=== PATIENT | male | born 1960 | race African-American/Black ===

== ENCOUNTER 2017-12-22 13:48 | Inpatient (IN) | payer MEDICAID ==
[~2017-12-22] VITALS: Ht 182.9 cm; Wt 103.9 kg
--- NOTE | ~2017-12-22 | EC ---
PATIENT:NAYANA NICE DATE OF SERVICE: 12/22/17 SEX: M MEDICAL RECORD: [id number] DATE OF : 58 LOCATION:D.M2 D.213 AGE OF PATIENT: 57 ADMISSION DATE: 12/22/17 REFERRING PHYSICIAN: INTERPRETING PHYSICIAN: TERRANCE ZAMUDIO MD ECHOCARDIOGRAM REPORT ECHO CHARGES 4 ECHO COMPLETE Date: 12/24/17 CLINICAL DIAGNOSIS: EDEMA ECHOCARDIOGRAPHIC MEASUREMENTS (adult normal given) AC root (d.<3.7cm) 3.3 cm LV Septum d (<1.2 cm> 2.4 cm Valve Excursion 1.4 cm LV Septum (systole) 2.4 cm Left Atria (s.<4.0cm> 5.2 cm LVPW d(<1.2cm) 1.5 cm RV (d.<2.3cm) 3.8 cm LVPW (sytole) 2.5 cm LV diastole(<5.6CM) 4.9 cm MV E-F(>70mm/sec) cm LV systole 3.2 cm LVOT Diameter 1.9 cm MV exc.(>10mm) cm Est.ejection fraction (50-75%) % DOPPLER: LVIT cm/sec A 38 cm/sec E 90 cm/sec LA cm/sec RVSP 20.2 mmHg LVOT 90 cm/sec AOP1/2T m/s Asc. Ao 172 cm/sec RVOT 78 cm/sec RA cm/sec PA 109 cm/sec AV Gradient Peak 11.9 mmHg AV Mean 5.7 mmHg AV Area 1.6 cm MV Gradient Peak 6.3 mmHg MV Mean 2.7 mmHg MV Area cm COMMENTS: Tools Developer: Imani FORTE Director Clinical Data: 3 Dr. Clark TAPE# PACS Pericardial Effusion N DATE OF SERVICE: 12/25/2017 Adequate 2D echo, color flow and spectral Doppler, and M-mode. LVH present. LV internal dimensions are normal. LV is globally hypokinetic with reduced EF, estimated EF 35%. Aortic valve sclerosis without stenosis by Doppler interrogation. Left atrium is dilated at 5.2 cm. Mitral valve shows no prolapse. Mild MR. Right sided chamber size is normal. Mild TR. TRANSINT:[id number] Voice Confirmation ID: [id number] DOCUMENT ID: [id number] ECHOCARDIOGRAM REPORT [id number] ARLETNAYANA COLON TERRANCE ZAMUDIO MD at 0843 CC: [id number] DICTATION DATE: 12/25/17 1053 FUR FINISHER SEAMSTRESS: 12/25/17 1159 DIS IN 12/25/17 [id number] [place] [address]
[2017-12-22 08:00] VITALS: BP 106/73; BP 153/85
[2017-12-22 14:35] LABS: BASOPHILS 0.2 % (0-2); EOSINOPHILS 4.8 % (0-7); HEMATOCRIT 23.5 % (42.0-54.0); IMMATURE GRANULOCYTES 0.2 % (0-5); MCH 26.2 pg (26.0-34.0); MCHC 31.9 g/dL (31.0-37.0); MCV 82.2 fL (80.0-100.0); MONOCYTES 7.2 % (2-11); NEUTROPHILS 68.6 % (40-80); PLATELET COUNT 177 10x3/uL (130-400); RBC 2.86 10x6/uL (4.20-6.10); WBC 5.3 10x3/uL (4.8-10.8)
[2017-12-22 14:44] LABS: HEMOGLOBIN 7.5 g/dL (13.5-17.5)
[2017-12-22 15:04] LABS: ALBUMIN 2.7 g/dL (3.4-5.0); ANION GAP 10.1 mmol/L (8-16); BILIRUBIN - TOTAL 0.44 mg/dL (0.2-1.3); CALCIUM 7.9 mg/dL (8.5-10.1); CARBON DIOXIDE 28.3 mmol/L (21.0-32.0); CREATININE - SERUM 1.5 mg/dL (0.6-1.3); POTASSIUM - SERUM 3.4 mmol/L (3.5-5.1); PROTEIN - SERUM 6.4 g/dL (6.4-8.2)
[2017-12-22 15:49] LABS: INR 1.29 (0.85-1.17); PROTIME 15.6 SECONDS (11.6-15.0)
[2017-12-22 15:51] LABS: D-DIMER-QUANTITATIVE 1.56 ug/mLFEU (0.20-0.54)
[2017-12-22 16:59] LABS: C-REACTIVE PROTEIN 0.2 mg/dL (0.0-0.9); CKMB 2.1 U/L (0.0-3.6); CREATINE KINASE 384 UL (21-232); PRO BNP 5830 pg/mL (0-125); TROPONIN-I < 0.017 ng/mL (0.000-0.060)
[2017-12-23] VITALS (7 sets, daily range): BP systolic 147–182; BP diastolic 66–91; BMI 28.5
[2017-12-23] MEDS ORDERED: HYDROCODONE-APA1 TAB PO (11:41)
[2017-12-23] MEDS ORDERED: CATAPRES0.1 MG PO (11:42)
[2017-12-23] MEDS ORDERED: GLUCOPHAGE500 MG PO (11:42)
[2017-12-23] MEDS ORDERED: COLACE100 MG PO (11:43)
[2017-12-23] MEDS ORDERED: MIRALAX527 GM PO (11:43)
[2017-12-23] MEDS ORDERED: NORVASC10 MG PO (11:44)
[2017-12-23] MEDS ORDERED: PRINIVIL20 MG PO (11:44)
[2017-12-23] MEDS ORDERED: COREG25 MG PO (11:45)
[2017-12-23] MEDS ORDERED: LOW DOSE ASPIRI81 M1 PO (11:46)
[2017-12-23] MEDS ORDERED: LASIX40 MG PO (11:46)
[2017-12-23] MEDS ORDERED: CARDURA4 MG PO (11:47)
[2017-12-23] MEDS ORDERED: GLUCOTROL 5 MG T5 MG PO (11:47)
[2017-12-23] MEDS ORDERED: LIPITOR80 MG PO (11:47)
[2017-12-23 15:08] LABS: BASOPHILS 0.3 % (0-2); EOSINOPHILS 4.7 % (0-7); IMMATURE GRANULOCYTES 0.2 % (0-5); LYMPHOCYTES 14.9 % (15-50); MCH 26.6 pg (26.0-34.0); MCHC 32.7 g/dL (31.0-37.0); MCV 81.4 fL (80.0-100.0); MEAN PLATELET VOLUME 9.9 fL (7.4-10.4); NEUTROPHILS 73.9 % (40-80); PLATELET COUNT 185 10x3/uL (130-400); RDW 14.8 % (11.5-14.5); WBC 6.5 10x3/uL (4.8-10.8)
[2017-12-23 15:09] LABS: HEMATOCRIT 28.4 % (42.0-54.0); HEMOGLOBIN 9.3 g/dL (13.5-17.5); RBC 3.49 10x6/uL (4.20-6.10)
[2017-12-23 15:25] LABS: ALBUMIN 2.9 g/dL (3.4-5.0); ANION GAP 12.8 mmol/L (8-16); BILIRUBIN - TOTAL 0.68 mg/dL (0.2-1.3); CALCIUM 8.5 mg/dL (8.5-10.1); CARBON DIOXIDE 27.7 mmol/L (21.0-32.0); CREATININE - SERUM 1.4 mg/dL (0.6-1.3); POTASSIUM - SERUM 3.5 mmol/L (3.5-5.1); PROTEIN - SERUM 7.2 g/dL (6.4-8.2)
[2017-12-24 04:56] VITALS: BP 179/92
[2017-12-24 09:23] VITALS: BP 168/83
[2017-12-24 11:57] LABS: BASOPHILS 0.3 % (0-2); EOSINOPHILS 3.2 % (0-7); HEMATOCRIT 29.9 % (42.0-54.0); HEMOGLOBIN 9.7 g/dL (13.5-17.5); IMMATURE GRANULOCYTES 0.3 % (0-5); LYMPHOCYTES 12.6 % (15-50); MCHC 32.4 g/dL (31.0-37.0); MCV 80.2 fL (80.0-100.0); MEAN PLATELET VOLUME 10.3 fL (7.4-10.4); MONOCYTES 7.2 % (2-11); NEUTROPHILS 76.4 % (40-80); PLATELET COUNT 185 10x3/uL (130-400); RBC 3.73 10x6/uL (4.20-6.10); RDW 14.7 % (11.5-14.5); WBC 6.5 10x3/uL (4.8-10.8)
[2017-12-24 12:19] LABS: % SATURATION 20 % (15-55); IRON 38 ug/dl (35-150); TOTAL IRON BIND CAPACITY 186 ug/dl (260-445); UNSAT IRON BIND CAPACITY 148 ug/dl (150-375)
[2017-12-24 12:27] LABS: ALBUMIN 3.1 g/dL (3.4-5.0); BILIRUBIN - TOTAL 1.01 mg/dL (0.2-1.3); CALCIUM 8.4 mg/dL (8.5-10.1); CARBON DIOXIDE 29.5 mmol/L (21.0-32.0); CREATININE - SERUM 1.5 mg/dL (0.6-1.3); MAGNESIUM - SERUM 1.8 mg/dL (1.8-2.4); POTASSIUM - SERUM 3.5 mmol/L (3.5-5.1); VANCOMYCIN - TROUGH 25.7 ug/mL (10.0-20.0)
[2017-12-24 13:26] VITALS: BP 155/77
[2017-12-24 14:53] VITALS: Ht 182.9 cm; Wt 103.9 kg
[2017-12-24 18:00] VITALS: BP 163/74
[2017-12-24 20:00] VITALS: BP 172/81
[2017-12-24 21:51] LABS: APPEARANCE CLEAR (CLEAR); BILIRUBIN NEGATIVE (NEGATIVE); COLOR YELLOW (YELLOW); GLUCOSE NEGATIVE (NEGATIVE); KETONE NEGATIVE (NEGATIVE); NITRITE NEGATIVE (NEGATIVE); PROTEIN 1+ mg/dL (NEGATIVE); UROBILINOGEN NORMAL (NORMAL)
[2017-12-24 21:52] LABS: RED CELLS - URINE OCC /hpf (0-5); WHITE CELLS - URINE OCC /hpf (0-5)
[2017-12-25 04:00] VITALS: BP 171/83
[2017-12-25 07:23] LABS: FOLATE (FOLIC ACID) - SERUM 11.8 ng/mL (>3.0)
[2017-12-25 08:20] VITALS: BP 168/69
[2017-12-25 09:27] LABS: BASOPHILS 0.3 % (0-2); EOSINOPHILS 4.8 % (0-7); HEMATOCRIT 28.3 % (42.0-54.0); HEMOGLOBIN 9.2 g/dL (13.5-17.5); IMMATURE GRANULOCYTES 0.2 % (0-5); LYMPHOCYTES 15.5 % (15-50); MCH 26.2 pg (26.0-34.0); MCHC 32.5 g/dL (31.0-37.0); MCV 80.6 fL (80.0-100.0); MEAN PLATELET VOLUME 9.2 fL (7.4-10.4); MONOCYTES 8.1 % (2-11); NEUTROPHILS 71.1 % (40-80); PLATELET COUNT 180 10x3/uL (130-400); RBC 3.51 10x6/uL (4.20-6.10); RDW 14.9 % (11.5-14.5); WBC 6.1 10x3/uL (4.8-10.8)
[2017-12-25 09:42] LABS: ALBUMIN 2.9 g/dL (3.4-5.0); ANION GAP 10.3 mmol/L (8-16); BILIRUBIN - TOTAL 0.69 mg/dL (0.2-1.3); CALCIUM 8.3 mg/dL (8.5-10.1); CARBON DIOXIDE 28.1 mmol/L (21.0-32.0); CREATININE - SERUM 1.6 mg/dL (0.6-1.3); MAGNESIUM - SERUM 1.9 mg/dL (1.8-2.4); POTASSIUM - SERUM 3.4 mmol/L (3.5-5.1); PROTEIN - SERUM 7.1 g/dL (6.4-8.2); VANCOMYCIN - TROUGH 11.6 ug/mL (10.0-20.0)
== END 2017-12-25 09:40 | disposition left against medical advice (07) | DRG 603 ==
LOC: D.ER 13:48 → D.EDHOLD 18:20 → D.M2 18:20
PROVIDERS: Family Medicine
DX: L03.115 Cellulitis of right lower limb (principal); I11.0 Hypertensive heart disease with heart failure; I50.9 Heart failure, unspecified; E11.65 Type 2 diabetes mellitus with hyperglycemia; D64.9 Anemia, unspecified; Z89.612 Acquired absence of left leg above knee